=== PATIENT | male | born 1975 | race Caucasian/White ===

== ENCOUNTER 2018-09-02 12:49 | Emergency (ER) | payer OTHER ==
--- NOTE | 2018-09-02 14:03 | UC ---
Skin Complaint HPI - HPI Summary HPI Summary: 43-year-old male who has a cyst on the left side of his neck which has been progressively enlarging over the past 2 months. He denies any fever or chills. He is nonsmoker and does not chew snuff or tobacco. - History of Current Complaint Chief Complaint: UCSkin Time Seen by Provider: 09/02/18 13:46 Stated Complaint: CYST ON JAW Hx Obtained From: Patient Onset/Duration: Gradual Onset Skin Exposure Onset/Duration: Weeks Ago Timing: Constant Onset Severity: Mild Current Severity: Moderate Pain Intensity: 2 Location: Other - Left-side of neck Aggravating Factor(s): Touch Alleviating Factor(s): Nothing Associated Signs & Symptoms: Positive: Negative - Patient states when it started it was more like a small pimple from an ingrown hair and he did try squeezing it but did not get any drainage. - Allergy/Home Medications Allergies/Adverse Reactions: Allergies Allergy/AdvReac Type Severity Reaction Status Date / Time amoxicillin Allergy Hives Verified 09/02/18 13:41 PMH/Surg Hx/FS Hx/Imm Hx Previously Healthy: Yes - Surgical History Surgical History: Yes Surgery Procedure, Year, and Place: parathyroid removal - Family History Known Family History: Positive: None - Social History Alcohol Use: None Substance Use Type: None Smoking Status (MU): Never Smoked Tobacco Review of Systems All Other Systems Reviewed And Are Negative: Yes Skin: Positive: Other - Gradually enlarging cyst left-sided neck over the past 2 months. Is Patient Immunocompromised?: No Physical Exam Triage Information Reviewed: Yes Appearance: Well-Appearing, No Pain Distress, Well-Nourished Vital Signs: Initial Vital Signs Temp 98.5 F 09/02/18 13:38 Pulse 98 09/02/18 13:38 Resp 18 09/02/18 13:38 BP 150/105 09/02/18 13:38 Pulse Ox 96 09/02/18 13:38 Vital Signs Reviewed: Yes ENT: Positive: Pharynx normal Neck: Positive: Supple, Other: - Patient has what appears to be a possible cyst or abscess left-sided neck that is approximately 2.0 cm in diameter somewhat firm on palpation although there is some softness to it. It's erythematous and mildly warm. Musculoskeletal Exam: Normal Neurological Exam: Normal Psychological Exam: Normal Skin Exam: Normal Course/Dx - Course Course Of Treatment: Soft tissue head/neck:FINDINGS: There is a complex cystic and solid mass in the left submandibular region corresponding with the patient's palpable abnormality with peripheral vascularity and complex cystic center. This measures 2.1 x 1.3 x 3.0 cm. IMPRESSION: THERE IS A COMPLEX CYSTIC MASS CORRESPONDING TO THE PATIENT'S PALPABLE ABNORMALITY IN THE LEFT SUBMANDIBULAR REGION CONSISTENT WITH EITHER AN ABSCESS OR A MALIGNANT OR BENIGN TUMOR. CONSIDER NEEDLE ASPIRATION FOR FURTHER EVALUATION. I spoke with the [facility] and they are able to see the patient on Wednesday at 10:15 in the morning. I am going to start him on clindamycin 3 times a day and warm moist compresses to the area. He is to call the ear nose and throat physicians at [phone] Wednesday and see if he can get in sooner than Wednesday. If he is able to get an earlier appointment than he can cancel [facility]. I advised the patient that if he has any difficulty breathing, feels like his throat is closing, has fever or chills he is to go immediately to the emergency room for further treatment. He is in agreement with this plan of action. - Diagnoses Provider Diagnosis: Neck mass Discharge - Sign-Out/Discharge Documenting (check all that apply): Patient Departure All imaging exams completed and their final reports reviewed: Yes - Discharge Plan Condition: Fair Disposition: HOME Prescriptions: Clindamycin Cap(NF) [Clindamycin Cap 300 mg Cap(NF)] 300 mg PO TID 10 Days #30 cap Patient Education Materials: Abscess (ED) Referrals: Monica Grant MD [Primary Care Provider] - Additional Instructions: Take the clindamycin with food as directed. May take Tylenol or Motrin for pain. May apply warm moist compresses to the area. Definite follow-up with the surgeon as scheduled on Wednesday at 10:15 in the morning however on Wednesday you are to call the ear nose and throat physician and make an appointment for sooner than Wednesday. If you are able to be seen sooner than Wednesday then you may cancel the appointment on Wednesday. If you develop any difficulty breathing, feeling like her throat is closing or any worsening symptoms your to go to the emergency room immediately. - Billing Disposition and Condition Condition: FAIR Disposition: Home - Attestation Statements Provider Attestation: This pt was not seen by me. I was available for consult
[2018-09-02 15:46] VITALS: BP 152/107
== END 2018-09-02 15:51 | disposition home or self-care (01) ==
LOC: UCEAST 12:49
DX: R22.1 Localized swelling, mass and lump, neck (principal)
CPT/HCPCS: 76536; 99212; G0463